=== PATIENT | male | born 1980 | race Hispanic/Latino ===

== ENCOUNTER 2021-09-16 20:48 | Emergency (ER) | payer SELFPAY ==
[2021-09-16 20:57] VITALS: BP 125/83; PULSE 70; RESP 16; TEMP 36.9; O2SAT 98; BMI 33.0
--- NOTE | 2021-09-16 21:33 | RAD_ITS ---
STUDY: X-RAY - LUMBAR SPINE REASON FOR EXAM: Male, 41 years old. back pain TECHNIQUE: 3 view(s) of the lumbar spine were obtained. COMPARISON: None FINDINGS: Normal lumbar lordosis. There is no substantial scoliosis. There is a normal alignment of the vertebrae. Normal vertebral bodies and endplates. Normal disc space heights. There is no demonstrated fracture. The soft tissue structures are unremarkable. RAD/Lumbar Spine 2 or 3 Views IMPRESSION: Normal x-ray examination of the lumbar spine. Electronically Signed: Kulwant Kinney MD at 22:31 EST , Service support ,
--- NOTE | 2021-09-16 21:34 | EDS_ITS ---
HPI History of Present Illness Chief Complaint: General Illness Informant: patient, friend and other Onset/Context/Timing Onset: Weeks Context: Gradual Onset Timing: Intermittent Current Severity: Mild Maximum Severity: Mild Narrative Narrative: 41-year-old male who does not speak Dutch. I used an [employer] helicopter iPad to obtain the history. Reportedly patient has no significant past medical or surgical history. States has had low back pain for 18 to 20 days. Denies any trauma. No falls or injury. He has never had back surgery. States his urine appears very dark yellow. The pain also increases when he bends over. No radiation to his legs. No bowel or bladder incontinence. He denies any fever. He denies any numbness to his lower extremities nor any weakness. Prior similar symptoms: Yes Recent Illness/Hospitalization: No PFSH PFSH Medical History no medical history no medical history Home Medications ibuprofen [Motrin IB] 600 mg PO Q6H #30 cap 09/16/21 [Rx Last Taken Unknown] Social History Smoking Status: Never smoker ROS ROS ED ROS Narrative Back pain. Review of Systems ROS Unobtainable: Denies due to encephalopathy Constitutional Constitutional ED: Denies chills or fever(s) Eyes Eyes: Denies change in vision ENT ENT ED: Denies ear pain Cardiovascular Cardiovascular: Denies chest pain or palpitations Respiratory/Chest Respiratory/Chest: Denies cough or dyspnea Gastrointestinal Gastrointestinal: Denies abdominal pain, diarrhea, nausea or vomiting Genitourinary Genitourinary ED: Denies dysuria, hematuria or urinary frequency Musculoskeletal Musculoskeletal: Reports back pain; Denies myalgias or neck pain Integumentary Denies rash Neurologic Neurologic: Denies headache(s) Psychiatric Psychiatric: Denies depression Endocrine Endocrinology: Denies polyuria Allergic/Immunologic Allergic/Immunologic ED: Denies urticaria EXAM Physical Exam Narrative Exam Narrative: 41-year-old male no acute distress. Vital signs stable afebrile. Initial blood pressure 125/83. H EENT exam unremarkable. Moist extremities. Neck nontender. No lymphadenopathy. Normal range of motion. Lungs clear to auscultation bilaterally. Heart regular rhythm no murmur. Abdomen soft nontender. Normal bowel sounds no peritoneal signs. No pulsatile mass. Nontender. Moving all 4 extremities. Neurovascularly intact. Normal strength and sensation. No cauda equina. No saddle anesthesia. No weakness or numbness. Back mild right-sided paralumbar soft tissue tenderness. No ecchymosis or bruising. No signs of trauma. No redness or warmth. Neurologic exam is normal. He has normal motor strength and sensation to all upper and lower extremities. No motor deficits. Const Vital Signs: 09/16/21 20:57 09/16/21 22:14 Temperature 98.5 F Temperature Source Temporal Pulse Rate 70 Respiratory Rate 16 Respiratory Effort Normal Respiratory Pattern Normal Blood Pressure 125/83 H Blood Pressure Mean 97 Pulse Ox 98 Oxygen Delivery Method Room Air Positive well nourished and well developed; Negative for obese, cachectic, contractures or unkempt General Appearance ED: well developed and NAD; Negative for unkempt, cachectic, contractures, cyanotic, diaphoretic or pallor Nutritional Appearance: Negative for cachectic or obese HEENT Reports moist mucous membranes Negative for trauma or tenderness Eyes PERRL and EOMs intact bilaterally Neck no lymphadenopathy, supple and no JVD General: Negative for tenderness Chest Wall inspection of chest normal and palpation of chest normal Resp normal respiratory effort and clear to auscultation bilaterally Effort and Inspection: Negative for pain with movement Auscultation: Negative for rales, rhonchi or wheezes Cardio regular rate, regular rhythm, S1 normal heart sound and no murmurs GI normal to inspection, nondistended, normoactive bowel sounds, non-tender, non- distended and no masses Inspection: Negative for abdominal distention Auscultation: normoactive bowel sounds Palpation: soft; Negative for tender, guarding or rebound tenderness present Back/Spine no CVA tenderness General Back: Negative for CVA tenderness Cervical Spine: Negative for cervical spine tenderness Thoracic Spine / Upper Back: paraspinal muscle tenderness; Negative for thoracic spinal tenderness Lumbar Spine / Lower Back: Negative for lumbar spinal tenderness Extremity normal to inspection General Extremety ED: Negative for edema or tenderness General Extremity: Negative for edema Neuro oriented x3, CN's II-XII intact bilaterally and no sensory deficits noted Sensorium / Orientation: alert; Negative for orientation impaired, lethargic or stuporous Sensory Exam: No sensory level loss detected Motor Exam: strength 5/5 throughout; Negative for general weakness Psych mental status grossly normal Appearance: Negative for unkempt Mood & Affect: Negative for depressed or tearful Skin no rashes or lesions noted and no wounds General Skin Exam: Negative for jaundice or pallor MDM MDM MDM Narrative Medical decision making narrative: 41-year-old male with right lower back pain for 2 to 3 weeks. Denies any trauma or fever. No bowel or bladder incontinence or hematuria. History obtained using an [employer] helicopter. Exam benign. Mild paralumbar soft tissue tenderness. X-ray and urinalysis being obtained. Repeat exam unchanged. Using the [employer] helicopter I discussed the patient diagnosis of musculoskeletal back pain. He was written for prescription ibuprofen. And was doing home instructions. Also referred to a local primary care physician if not improving. Lab Data Attestation: I reviewed the patient's lab results. Lab results narrative: Urinalysis unremarkable. No signs of infection. Labs: Laboratory Results - last 24 hr 09/16/21 22:12 Urine Color Yellow Urine Clarity Clear Urine pH 7.0 Ur Specific [place] 1.010 Urine Protein Negative Urine Glucose (UA) Normal Urine Ketones Negative Urine Occult Blood 10 H Urine Nitrite Negative Urine Bilirubin Negative Urine Urobilinogen Normal Ur Leukocyte Esterase Negative Urine RBC 0 SEEN Urine WBC 0 SEEN Ur Squamous Epith Cells 0 SEEN Urine Bacteria 0 SEEN Urine Mucus 0 SEEN Radiography Diagnostic Testing: Clinical Impression(s) from Imaging Studies Lumbar Spine X-Ray 09/16/21 21:33 IMPRESSION: Normal x-ray examination of the lumbar spine. Electronically Signed: Kulwant Kinney MD at 22:31 EST , Service support , Lumbar spine plain films 3 views interpreted by myself showed no acute abnormality. Normal vertebral bodies. No obvious signs of a kidney stone. Discharge Plan Triage Chief Complaint: General Illness Other Complaint: Back ED Provider: Kennedy Armstrong Dx/Rx/DC Orders Clinical Impression: Back pain, Lumbar strain Instructions: ED Back Pain (Acute or Chronic) Prescriptions: New ibuprofen [Motrin IB] 200 mg capsule 600 mg PO Q6H Qty: 30 RF: 0 Primary Care Provider: Care Physician,No Primary Referrals: Esa Toavr MD [STAFF PHYSICIAN] - 1 Week if not improving Care Physician,No Primary [Primary Care Provider] - Activity Restrictions/Additional Instructions: Motrin for pain and inflammation. Hot shower, warm bath and massage to decrease the pain in your back. Follow-up with your doctor if not improving. Print Language: Green[place]ic Disposition Disposition: Home, Self Care
[2021-09-16 22:16] LABS: Bacteria 0 SEEN /hpf (None Seen); Mucous, Urine 0 SEEN /hpf (<or=2+); Red Blood Cells-Urine 0 SEEN /hpf (0-5); Squamous Epithelial Cells - UA 0 SEEN /hpf (0-5); White Blood Cells 0 SEEN /hpf (0-5)
[2021-09-16 22:20] LABS: Color, Urine Yellow (Yellow); Glucose, Dipstick Normal (Normal); Ketone-Dipstick Negative (Negative); Leukocyte Esterase-Dipstick Negative /ul (Negative); Nitrite-Dipstick Negative (Negative); Occult Blood-Urine 10 /ul (Negative); Protein-Dipstick Negative (Negative); Urine Bilirubin Dipstick Negative (Negative); Urine Clarity Clear (Clear); Urine Urobilinogen Normal (Normal)
[2021-09-16 22:43] VITALS: RESP 16
--- NOTE | 2021-09-16 22:50 | EX.ED.DYSGE1 ---
HPI History of Present Illness Chief Complaint: General Illness Detail of Chief Complaint: Low back pain Informant: patient, friend and other [facility] Medical History no medical history Home Medications ibuprofen [Motrin IB] 600 mg PO Q6H #30 cap 09/16/21 [Rx Last Taken Unknown] pantoprazole [Protonix] 20 mg PO DAILY #30 tab 09/16/21 [Rx Last Taken Unknown] Social History Smoking Status: Never smoker EXAM Physical Exam Const Vital Signs: 09/16/21 20:57 09/16/21 22:14 09/16/21 22:43 Temperature 98.5 F Temperature Source Temporal Pulse Rate 70 Respiratory Rate 16 16 Respiratory Effort Normal Respiratory Pattern Normal Blood Pressure 125/83 H Blood Pressure Mean 97 Pulse Ox 98 Oxygen Delivery Method Room Air [facility] Lab Data Lab results narrative: Urinalysis normal. Lumbar spine x-rays normal. Labs: Laboratory Results - last 24 hr 09/16/21 22:12 Urine Color Yellow Urine Clarity Clear Urine pH 7.0 Ur Specific [place] 1.010 Urine Protein Negative Urine Glucose (UA) Normal Urine Ketones Negative Urine Occult Blood 10 H Urine Nitrite Negative Urine Bilirubin Negative Urine Urobilinogen Normal Ur Leukocyte Esterase Negative Urine RBC 0 SEEN Urine WBC 0 SEEN Ur Squamous Epith Cells 0 SEEN Urine Bacteria 0 SEEN Urine Mucus 0 SEEN Radiography Diagnostic Testing: Clinical Impression(s) from Imaging Studies Lumbar Spine X-Ray 09/16/21 21:33 IMPRESSION: Normal x-ray examination of the lumbar spine. Electronically Signed: Kulwant Kinney MD at 22:31 EST , Service support , Discharge Plan Triage Chief Complaint: General Illness Other Complaint: Back ED Provider: Kennedy Armstrong Dx/Rx/DC Orders Clinical Impression: Back pain, Lumbar strain Instructions: ED Back Pain (Acute or Chronic) Prescriptions: New ibuprofen [Motrin IB] 200 mg capsule 600 mg PO Q6H Qty: 30 RF: 0 pantoprazole [Protonix] 20 mg tablet,delayed release (DR/EC) 20 mg PO DAILY Qty: 30 RF: 0 Primary Care Provider: Care Physician,No Primary Referrals: Esa Tovar MD [STAFF PHYSICIAN] - 1 Week if not improving Care Physician,No Primary [Primary Care Provider] - Activity Restrictions/Additional Instructions: Motrin for pain and inflammation. Hot shower, warm bath and massage to decrease the pain in your back. Follow-up with your doctor if not improving. Print Language: Kyrgyz Disposition Disposition: Home, Self Care
== END 2021-09-16 22:53 | disposition home or self-care (01) ==
PROVIDERS: Emergency Provider Emergency Medicine
DX: S39.012A Strain of muscle, fascia and tendon of lower back, initial encounter (principal); X58.XXXA Exposure to other specified factors, initial encounter; Y93.9 Activity, unspecified; Y92.9 Unspecified place or not applicable; Y99.9 Unspecified external cause status
CPT/HCPCS: 72100; 81001; 99283